=== PATIENT | male | born 1985 | race Caucasian/White ===

== ENCOUNTER 2017-10-09 14:14 | Emergency (ER) | payer OTHER ==
[2017-10-09 14:25] VITALS: BP 126/81; PULSE 78; RESP 15; TEMP 98.4
[2017-10-09] MEDS ORDERED: DIPH,PERTUS(ACELL)TETVAC-LF 0.5 ML VIAL IM ONE (14:30)
--- NOTE | 2017-10-09 14:33 | ED ---
Wound/Laceration HPI - General Chief Complaint: Wound/Laceration Stated Complaint: rt arm lac Time Seen by Provider: 10/09/17 14:29 Source: patient, RN notes reviewed Mode of arrival: ambulatory Limitations: no limitations - History of Present Illness Initial Comments: 32-year-old male presents emergency Department chief complaint of laceration to his right forearm. Patient states that he has a superficial laceration from throwing [place] into a doctor. He states he is here for his tetanus is less than tetanus was 4 years ago. Patient states bleeding has stopped he did wash it with soap and water. There is no continuation of bleeding. - Related Data Home Medications Medication Instructions Recorded Confirmed buPROPion [Wellbutrin] 1 tab PO DAILY 10/09/17 10/09/17 Allergies Allergy/AdvReac Type Severity Reaction Status Date / Time No Known Allergies Allergy Verified 10/09/17 14:23 Review of Systems ROS Statement: Those systems with pertinent positive or pertinent negative responses have been documented in the HPI. ROS Other: All systems not noted in ROS Statement are negative. Past Medical History Past Medical History: No Reported History History of Any Multi-Drug Resistant Organisms: None Reported Additional Past Surgical History / Comment(s): eye Past Psychological History: Depression Smoking Status: Current every day smoker Past Alcohol Use History: Occasional Past Drug Use History: Heroin General Exam Limitations: no limitations General appearance: alert, in no apparent distress Head exam: Present: atraumatic, normocephalic, normal inspection Respiratory exam: Present: normal lung sounds bilaterally. Absent: respiratory distress, wheezes, rales, rhonchi, stridor Cardiovascular Exam: Present: regular rate, normal rhythm, normal heart sounds. Absent: systolic murmur, diastolic murmur, rubs, gallop, clicks Extremities exam: Present: other (Right forearm there is a superficial 2 cm laceration no active bleeding) Skin exam: Present: warm, dry Course Vital Signs 10/09/17 14:23 Temperature 98.4 F Pulse Rate 78 Respiratory 15 Rate Blood Pressure 126/81 O2 Sat by Pulse 98 Oximetry Medical Decision Making - Medical Decision Making 32-year-old male presented for superficial laceration, tetanus update. Patient was given Adacel in the emergency Department the wound was rewrapped and he will be discharged. Wound care instructions were provided. Disposition Clinical Impression: Superficial laceration Disposition: HOME SELF-CARE Condition: Stable Instructions: Acute Wound Care (ED) Additional Instructions: Please return to the Emergency Department if symptoms worsen or any other concerns. Is patient prescribed a controlled substance at d/c from ED?: No Referrals: Nonstaff,Physician [Primary Care Provider] - 1-2 days Time of Disposition: 14:33
== END 2017-10-09 14:45 | disposition home or self-care (01) ==
LOC: EC 14:14
DX: S51.811A Laceration without foreign body of right forearm, initial encounter (principal); F32.9 Major depressive disorder, single episode, unspecified; F17.200 Nicotine dependence, unspecified, uncomplicated; Z79.899 Other long term (current) drug therapy; Z23 Encounter for immunization; W45.8XXA Other foreign body or object entering through skin, initial encounter
CPT/HCPCS: 90471; 90715; 99282